=== PATIENT | female | born 1985 | race Caucasian/White ===

== ENCOUNTER 2022-08-07 09:05 | Outpatient (CLI) | payer OTHER, SELFPAY ==
--- NOTE | 2022-08-07 09:15 | CRLHL7_ITS ---
For Patients: As a result of the Cures Act, medical imaging exams and procedure reports are released immediately into your electronic medical record. You may view this report before your referring provider. If you have questions, please contact your health care provider. INDICATION: First trimester scan, establish dates. COMPARISON: None. TECHNIQUE: Real-time culp-scale imaging of the pelvis was performed. FINDINGS: Sonographic imaging demonstrates a single living intrauterine gestation. The embryo demonstrates a regular cardiac rate measuring 171 beats per minute. The embryo`s crown-rump length measurement of 2.3 cm corresponds to a gestational age of 9 weeks 0 days with a sonographic due date of March 12, 2023. There is a normal-appearing yolk sac measuring 3.8 mm. There are no gross abnormalities noted within the embryo at this early state of development. The placenta has not yet developed. The gestational sac has a normal appearance. Crescentic shaped subchorionic hemorrhage along the left side of the gestational sac extending toward the fundus measuring 4.4 cm in length by 0.9 cm in thickness. The amount of fluid within the sac appears appropriate for gestational age. The cervix is closed. The myometrium appears normal. The ovaries are of normal size. The right ovary measures 3.3 x 1.9 x 2.6 cm. The left ovary measures 2.9 x 1.4 x 1.9 cm. Corpus luteum cyst of on the right measuring 1.8 x 1.6 x 1.6 cm. There are no suspicious fluid collections noted in the cul-de-sac. IMPRESSION: Normal first trimester OB ultrasound exam. Gestational age calculated at 9 weeks 0 days with a sonographic due date of March 12, 2023. Curvilinear subchorionic hemorrhage. Dictated by Rachid Piña MD @ 08/07/2022 11:09:28 AM (Electronically Signed)
== END 2022-08-07 09:06 | disposition home or self-care (01) ==
PROVIDERS: PCP Advanced Practice Midwife; Visit Provider Advanced Practice Midwife
DX: O09.521 Supervision of elderly multigravida, first trimester (principal); Z3A.09 9 weeks gestation of pregnancy
CPT/HCPCS: 76817; 86592; 86703; 86762; 86787; 86803; 86850; 86900; 86901; 87086; 87340

== ENCOUNTER 2022-10-23 10:18 | Outpatient (CLI) | payer OTHER, SELFPAY ==
--- NOTE | 2022-10-23 10:15 | CRLHL7_ITS ---
For Patients: As a result of the Century Cures Act, medical imaging exams and procedure reports are released immediately into your electronic medical record. You may view this report before your referring provider. If you have questions, please contact your health care provider. INDICATION: Evaluate anatomy. COMPARISON: 08/07/2022 TECHNIQUE: Real time culp scale imaging of the fetus was performed as well as color Doppler analysis of the umbilical vessels. FINDINGS: Sonographic imaging demonstrates a single living intrauterine gestation. Fetus demonstrates a regular cardiac rate of 144 beats per minute. Fetus has a vertex position. The placenta lies anteriorly without evidence of placenta previa. The edge of the placenta is located 4.4 cm from the internal cervical os. Amniotic fluid volume appears normal. Single deepest vertical pocket: 4.4 cm. The cervix is closed and measures 4.3 cm in length. The composite ultrasound gestational age is calculated at 19 weeks 6 days with an estimated sonographic due date of 03/13/2023. The estimated weight is 327 grams which lies at the 31st %. The following biometric measurements were obtained: Biparietal diameter: 4.6 cm/19 weeks 5 days 28th% Head circumference: 17.1 cm/19 weeks 5 days 17 50% Abdominal circumference: 15.3 cm/20 weeks 4 days 52nd% Femur length: 3.1 cm/19 weeks 4 days 18th% The HC/AC ratio measures: 1.11 range (1.08-1.26) On anatomic survey, there is a normal appearance of the cerebral ventricles, cavum septi pellucidi, cisterna magna and cerebellum. The nose, lips, and facial profile appear normal. The cervical, thoracic and lumbar spine are well visualized and appear normal. There is a normal four-chamber heart view and the left and right ventricular outflow tracts appear normal. The diaphragm and stomach appear normal. The kidneys and bladder also appear normal. There is a normal three-vessel cord and cord insertion site. The four extremities appear normal. IMPRESSION: Normal OB ultrasound exam with concordance of clinical and sonographic dating. No intrinsic abnormalities noted on anatomic survey. Dictated by Clarke Ames MD @ 10/23/2022 11:57:27 AM (Electronically Signed)
== END 2022-10-23 10:19 | disposition home or self-care (01) ==
LOC: US 10:19
PROVIDERS: Visit Provider Advanced Practice Midwife
DX: Z34.93 Encounter for supervision of normal pregnancy, unspecified, third trimester (principal); O09.523 Supervision of elderly multigravida, third trimester; Z82.79 Family history of other congenital malformations, deformations and chromosomal abnormalities; Z3A.19 19 weeks gestation of pregnancy
CPT/HCPCS: 76805

== ENCOUNTER 2022-12-16 08:33 | Outpatient (CLI) | payer OTHER, SELFPAY | END 2022-12-16 08:34 | disposition home or self-care (01) | LOC: NFLDREF 12-18 11:57 | PROVIDERS: Visit Provider Advanced Practice Midwife | DX: Z34.93 Encounter for supervision of normal pregnancy, unspecified, third trimester (principal); Z3A.28 28 weeks gestation of pregnancy | CPT/HCPCS: 86592 ==

== ENCOUNTER 2023-02-09 09:45 | Outpatient (CLI) | payer OTHER, SELFPAY ==
[2023-02-10 22:05] LABS: Strep B DNA Probe Negative (Negative); Strep B Susceptibility Needed? No
== END 2023-02-09 09:46 | disposition home or self-care (01) ==
LOC: NFLDREF 10:23
PROVIDERS: Visit Provider Physician Assistant
DX: O09.523 Supervision of elderly multigravida, third trimester (principal)
CPT/HCPCS: 87081; 87653

== ENCOUNTER 2023-02-18 10:41 | Outpatient (CLI) | payer OTHER, SELFPAY | END 2023-02-18 10:42 | disposition home or self-care (01) | LOC: LKVREF 10:42 | PROVIDERS: PCP Emergency Medicine; Visit Provider Emergency Medicine | DX: R21 Rash and other nonspecific skin eruption (principal) | CPT/HCPCS: 80076 ==

== ENCOUNTER 2023-03-11 19:47 | Inpatient (IN) | payer OTHER, SELFPAY ==
[2023-03-11] VITALS (18 sets, daily range): BP systolic 111–140; BP diastolic 61–92; PULSE 65–86; RESP 16; TEMP 36.9; BMI 28.3
--- NOTE | 2023-03-11 20:21 | W.PM.LDBA ---
Subjective History of Present Illness Date Seen: 03/11/23 Narrative: Patient is being admitted to Labor and Delivery for active labor at term. She is a 37 year old at 40.1 weeks gestation. Her full history and physical was dictated by Araceli Hamlin CNM on 02/17/23. Please see this for details. She did not have care from 37.0 weeks until delivery. She states that she usually delivers well before 40 weeks so she didn't think to make any appointments. Her was complicated by AMA, grand multiparity, anemia and hx of macrosomia. She started alex around 1700. She presented to the unit alex painfully but controlled. Shortly after delivery she was feeling an urge to push. She was found to have a small rim and bulging bag of fluid at that time. Specific Issues/Plans H & P done 02/17/23 by Araceli Hamlin 1. AMA, >35 Genetic screening: declines Level II US: declines 2. Grand multiparity, Recommend IV and AMTSL 3. Son (5th child) with Bicuspid Aortic Valve Did not see MFM w/ previous , offered consult. Declines level II and echo. 4. Hx of macrosomia 3rd, 5th, and 6th child (8lb 9oz, 10lb 5oz, 9lb 14oz). Denies any complications w/ deliveries 5. Mild anemia, hemoglobin 10.9 at 34 weeks Flu: declines Covid: Tdap: RSV: OB - Problem Based A/P Additional Plan (1) Grand multiparity: Status: Acute (2) AMA (advanced maternal age) multigravida 35+: Status: Acute (3) Insufficient care in third trimester: Status: Acute (4) Family history of congenital heart defect: Problem details: Son (5th child) Status: Acute (5) Anemia: Status: Acute (6) History of macrosomia in infant in prior , currently in third trimester: Status: Acute Plan ASSESSMENT:? at 40.1 weeks gestation? GBS negative? complicated by AMA, anemia, hx macrosomia, grand multiparity, and insufficient care in last trimester.? Active labor at term? ?? PLAN:? 1. Candidate for analgesia of choice. Planning unmedicated .? 2. Anticipate ? 3. Expectant management at this time.? 4. Place IV. 5. Intermittent monitoring after reactive tracing.? Delivery/Labor/Induction Plan Plan: expectant management OB Result Labs Blood Type: O (+) positive GBS Status: negative OB Exam Physical Exam Vital signs: Pulse BP 71 127/61 03/11/23 20:07 03/11/23 20:07 Narrative: Psychiatric:? Alert and oriented x3? HEENT:? Normocephalic, atraumatic? Neck:? Supple without adenopathy or thyromegaly? Lungs:? Clear to auscultation bilaterally? Heart:? Regular rate and rhythm, no murmur, rub or gallop? Abdomen:? Soft, nontender, and gravid? Extremities:? No edema or erythema Detailed Labor and Delivery Exam Patient Gravid: Yes Dilation (cm): 9 (anterior rim) Effacement (%): 100 Contraction intensity: Strong/Firm Comments: Not enough tracing was obtained before delivery to get a baseline or reactive tracing. FHR was 125-135. Fetus (Single) Station: +3 Amniotic Membrane Status: intact
--- NOTE | 2023-03-11 20:35 | W.PM.OBVAGDE ---
OB Procedure Vag Delivery Mother Details Mother Details: The patient is a 37 year-old, 7, Para 7, admitted on 03/11/23 at 40.1weeks gestation. : 7 Para: 7 Weeks Gestation: 40.1 Admission Date: 03/11/23 Additional Details Amniotic Membrane Status: SROM Amniotic Membrane Rupture Date: 03/11/23 Amniotic Membrane Rupture Time: 19:45 Amniotic Membrane Fluid Description: Clear Analgesia/Anesthesia Type: None Waterbirth: No Pitcoin: No Intrapartal Events: Precipitous Labor <3 Hrs Labor Onset: 17:00 Complete: 19:45 Pushin:45 Heart: heart tones during second stage were 125-135. Adequate and reactive tracing not obtained due to very short time from admission to delivery. Delivery Details Delivery Date: 03/11/23 Delivery Time: 19:46 Route of delivery: Gender: Female Viability: Alive; Heart Rate Present Position at Delivery: OA Delivery Details: Patient was admitted for active labor and progressed normally and rapidly. SROM noted at 1945 with clear fluid. Patient was complete at 1945 and pushing at 1945. of a viable female at 1946 in the bed in lithotomy position. Vertex delivered OA. No nuchal cord or shoulder. Hand but face at delivery. Body delivered easily and without incident. passed to mothers abdomen with a vigorous cry. Cord was clamped and cut at > 5 minutes. APGARS were 8 at one minute and 9 at five minutes respectively. Mouth was bulb suctioned. Intact placenta with a 3 vessel cord delivered spontaneously at 2004. The placenta mostly delivered at 2001 with slow release for the last of it and trailing membranes that did not completely deliver until 2004. La was sat in throne position and leaned forward as I supported the placenta which aided in delivery of the last of the trailing membranes. Fundus firm. No lacerations were identified. QBL 200 cc. Mother and baby stable; mother plans to breastfeed. weight pending. 1 Minute Interval Total Score: 8 5 Minute Interval Total Score: 9 Additional Details Shoulder Dystocia: No Placenta Delivery Time: 20:05 Placental Delivery Description: Spontaneous Procedure Done: Global Blood Loss: 200 Laceration: None Blood Loss Measurement Type: QBL Bakri Used: No Sponge/Need Count Correct: Yes Cord Vessel Description: 3 Vessels Event Summary Status: Mother and infant were stable after delivery. Disposition: floor
[2023-03-11 22:45] LABS: Basophils Percent Auto 0.2 % (0.0-3.0); Hematocrit 36.8 % (33.0-51.0); Immature Granulocytes Pct Auto 1.2 %; Lymphocytes Percent Auto 4.4 % (20-44); Mean Corpuscular HGB Conc 33 gm/dL (32-36); Mean Corpuscular Hemoglobin 28 pg (26-34); Mean Corpuscular Volume 84 fL (80-100); Monocytes Percent Auto 4.2 % (0.0-11.0); Platelet Count* 294 K/uL (140-440); RDW Coefficient of Variation % 13.8 % (11.5-15.5); Red Blood Count 4.36 m/uL (4.00-5.20); White Blood Count* 16.53 K/uL (4.50-11.00)
[2023-03-11 22:56] LABS: Slide Review Reflex No
[2023-03-12 01:08] VITALS: BP 110/64; PULSE 63; RESP 16; TEMP 36.7; O2SAT 97
[2023-03-12 04:35] VITALS: BP 113/66; PULSE 68; RESP 16; TEMP 36.7; O2SAT 97
--- NOTE | 2023-03-12 07:43 | P.DS_ITS ---
DS: Providers Provider Date Seen: 03/12/23 Date of admission: 03/11/23 19:47 Primary care physician: Julissa Jefferson Admitting Clinician: Emily Richardson CNM Attending Physician on discharge: Emily Richardson CNM Date of Discharge: 03/12/23 DS: Diagnosis Discharge Diagnosis (1) AMA (advanced maternal age) multigravida 35+: Status: Acute (2) Grand multiparity: Status: Acute (3) NVD (normal vaginal delivery): Status: Acute (4) Lactating mother: Status: Acute Exam Narrative: Exam Narrative: VSS, afebrile GENERAL APPEARANCE: ?normal affect, alert, no distress MOOD: ?appropriate HEENT: normocephalic, neck supple, full ROM CHEST: ?Symmetrical chest wall movement. ?Normal respiratory effort. ?Clear to auscultation HEART: ?regular rate and rhythm ABDOMEN: ?soft, non-tender. Uterine fundus is firm, at Umbilicus, Midline and is appropriate for the stage of recovery. ?Bowel sounds present. PERINEUM: ?mild edema of the perineum, there is no laceration EXTREMITIES: ?normal and no edema Const: Vital Signs, click to edit/add: Vital Signs - 24 hr 03/11/23 19:45 03/11/23 20:00 03/11/23 20:07 Temperature 98.5 F Pulse Rate 86 71 Pulse Rate [Pulse Oximeter] Respiratory Rate Blood Pressure 140/81 H 127/61 Blood Pressure [Le ft Arm] [facility] 20:10 03/11/23 20:22 03/11/23 20:25 Temperature Pulse Rate 72 Pulse Rate [Pulse Oximeter] Respiratory Rate 16 16 Blood Pressure 111/68 Blood Pressure [Le ft Arm] Pulse Oximetry [facility] 03/11/23 20:37 03/11/23 20:40 03/11/23 20:52 Temperature Pulse Rate 65 66 Pulse Rate [Pulse Oximeter] Respiratory Rate 16 Blood Pressure 115/70 113/69 Blood Pressure [Le ft Arm] Pulse Oximetry [facility] 03/11/23 20:55 03/11/23 21:07 03/11/23 21:10 Temperature Pulse Rate 68 Pulse Rate [Pulse Oximeter] Respiratory Rate 16 16 Blood Pressure 127/74 Blood Pressure [Le ft Arm] Pulse Oximetry Oxygen Delivery Me thod 03/11/23 21:23 03/11/23 21:25 03/11/23 21:37 Temperature Pulse Rate 65 66 Pulse Rate [Pulse Oximeter] Respiratory Rate 16 Blood Pressure 136/92 H 120/79 Blood Pressure [Le ft Arm] Pulse Oximetry Oxygen Delivery Me thod 03/11/23 21:40 03/11/23 21:52 03/11/23 21:55 Temperature Pulse Rate 67 Pulse Rate [Pulse Oximeter] Respiratory Rate 16 16 Blood Pressure 122/79 Blood Pressure [Le ft Arm] Pulse Oximetry Oxygen Delivery Me thod 03/12/23 01:08 03/12/23 04:35 Temperature 98.1 F 98.0 F Pulse Rate Pulse Rate [Pulse Oximeter] 63 68 Respiratory Rate 16 16 Blood Pressure Blood Pressure [Le ft Arm] 110/64 113/66 Pulse Oximetry 97 97 Oxygen Delivery Me thod Room Air Room Air Documenting provider has reviewed patient's vital signs: yes OB - DS: Summary Hospital Course Hospital Course: La is a 37 y.o. G 7 P 7 who was admitted to L & D for active labor. ?She had an uncomplicated NVD The patient feels well. ?The pain is well controlled with current medications. ?She has no new complaints. ?She is breast feeding and reports things are going well.? the patient has done well.? Vitals have been stable.? She has remained afebrile.? Has a good appetite, is tolerating a general diet. ?She is voiding without difficulty.? She is passing gas and has not had a bowel movement.? She is ambulating and denies any dizziness.? Has Small amount of rubra lochia. She is planning NFP for prevention. Problems: none plan: Discharge home with baby. Follow up in 2 weeks and 6 weeks. , may follow up with if needed [place] Infant Gender: Female Infant Discharge Plan: Home Status at Discharge Functional status at discharge: independent ambulation Overall status at discharge: patient is progressing back to baseline Time Spent with Patient Time attestation: Total time spent providing and/or coordinating discharge services: Time spent: Less than 30 minutes Discharge Plan Discharge Disposition: Home, Self-Care Date of Admission: 03/11/23 19:47 Attending Provider on Discharge: Nicol Hamlin Primary Care Provider: Julissa Jefferson Condition: Stable Anticipated Discharge Date/Time: 03/12/23 21:00 Discharge Medications: New docusate sodium 100 mg Capsule 100 mg PO BID PRNQty: 100 0RF Rx Instructions: Take 1 cap 1-2 times a day as needed for constipation ibuprofen 600 mg Tablet 600 mg PO Q6H PRNQty: 60 0RF Continued [id number] 3-fat com #1 [id number] mg capsule 1 cap PO DAILY Discontinued ferrous sulfate 325 mg (65 mg iron) tablet 325 mg PO QDAY Discharge Orders: Discharge Order (Routine); Ordered 03/12/23 Ordered By: Nicol Hamlin Patient Education: OB Over the Counter Medication Information, OB Vaginal/Breast Feeding Additional Instructions: Follow up in 2 weeks and 6 weeks in the clinic. Activity Level: Activity as Tolerated Discharge Diet: Regular Follow Up Appointments: Julissa Jefferson MD [Primary Care Provider] - Forms: [facility] Info Instructions
[2023-03-12 08:21] VITALS: BP 115/64; PULSE 68; RESP 16; TEMP 36.7; O2SAT 97
[2023-03-12 12:34] VITALS: BP 115/70; PULSE 68; RESP 16; TEMP 36.7; O2SAT 97
[2023-03-12 16:58] VITALS: BP 104/66; PULSE 63; RESP 16; O2SAT 97
[2023-03-12 20:17] VITALS: BP 110/69; PULSE 65; RESP 16; TEMP 36.9; O2SAT 98
== END 2023-03-12 20:50 | disposition home or self-care (01) | DRG 807 ==
LOC: OB OUT 19:47 → OB 20:18
PROVIDERS: Admitting Provider Advanced Practice Midwife; PCP Emergency Medicine; Visit Provider Advanced Practice Midwife
DX: O80 Encounter for full-term uncomplicated delivery (principal); Z37.0 Single live birth; Z82.79 Family history of other congenital malformations, deformations and chromosomal abnormalities; Z64.1 Problems related to multiparity; Z3A.40 40 weeks gestation of pregnancy; O99.02 Anemia complicating childbirth
CPT/HCPCS: 36415; 85025; 86850; 86900; 86901; G0463